=== PATIENT | male | born 1980 | race Caucasian/White ===

== ENCOUNTER 2019-12-18 19:04 | Inpatient (IN) | payer MEDICAID, OTHER ==
[~2019-12-18] VITALS: Ht 190.5 cm; Wt 76.8 kg
[2019-12-18 20:04] LABS: BASOPHILS % (AUTO) 0.9 % (0.0-2.0); EOSINOPHILS % (AUTO) 2.6 % (1.0-6.0); HEMATOCRIT 37.5 % (41-53); HEMOGLOBIN 12.1 g/dL (13.5-17.5); LYMPHOCYTES # (AUTO) 1.8 K/uL (1.0-4.8); LYMPHOCYTES % (AUTO) 19.4 % (22.0-44.0); MEAN CORPUSCULAR HGB CONC 32.2 G/dL (31.0-37.0); MEAN CORPUSCULAR VOLUME 65 fL (80-100); MONOCYTES # (AUTO) 0.7 K/uL (0.1-1.0); MONOCYTES % (AUTO) 7.1 % (2.0-9.0); NEUTROPHILS # (AUTO) 6.4 K/uL (1.8-7.7); PLATELET COUNT (AUTO) 215 K/uL (150-450); RED BLOOD CELL COUNT(AUTO) 5.74 MIL/uL (4.50-5.90); RED CELL DISTRIBUTION WIDTH 15.2 % (11.5-14.5)
[2019-12-18 20:09] LABS: COVID AG,FIA SOURCE NASOPHARYNGEAL
[2019-12-18 20:16] LABS: AMPHET/METH SCREEN,URINE POSITIVE (NEGATIVE); BARBITURATE SCREEN, URINE NEGATIVE (NEGATIVE); BENZODIAZEPINES SCREEN,URINE NEGATIVE (NEGATIVE); CANNABINOID SCREEN,URINE POSITIVE (NEGATIVE); COCAINE SCREEN,URINE NEGATIVE (NEGATIVE); METHADONE SCREEN, URINE NEGATIVE (NEGATIVE); OPIATE SCREEN,URINE NEGATIVE (NEGATIVE)
[2019-12-18 20:17] LABS: PHENCYCLIDINE SCREEN,URINE NEGATIVE (NEGATIVE)
[2019-12-18 20:27] LABS: ANION GAP 7 mmol/L (8-16); CALCIUM, TOTAL 8.3 mg/dL (8.8-10.5); CARBON DIOXIDE 29 mmol/L (22-29); CHLORIDE 104 mmol/L (98-107); CREATININE 0.78 mg/dL (0.60-1.30); GLOMERULAR FILTR. RATE CALC > 60 mL/min (>60); GLUCOSE,RANDOM 99 mg/dL (70-110); POTASSIUM 3.4 mmol/L (3.5-5.1); SODIUM SERUM 140 mmol/L (136-145); UREA NITROGEN, BLOOD 12 mg/dL (7-18)
[2019-12-18] MEDS ORDERED: MAG HYDROX/AL HYDROX/SIMETH ES 30 ML SUSPENSION UDCUP PO PRN (20:30)
[2019-12-18] MEDS ORDERED: OLANZapine 5 MG RAPDIS TABLET PO PRN (20:30)
[2019-12-18] MEDS ORDERED: PROMETHAZINE HCL 25 MG TABLET PO PRN (20:30)
[2019-12-18] MEDS ORDERED: TUBERCULIN, PURIFIED PROTEIN DERIVATIVE 5 TU/0.1 ML SYRINGE ID ONE (20:30)
[2019-12-18] MEDS ORDERED: LOPERAMIDE HCL 2 MG CAPSULE PO PRN (20:30)
[2019-12-18] MEDS ORDERED: GuaiFENesin/D-METHORPHAN [SUGAR-FREE] 200-20MG/10 ML SYRUP UDCUP PO PRN (20:30)
[2019-12-18] MEDS ORDERED: ACETAMINOPHEN 325 MG TABLET PO PRN (20:30)
[2019-12-18] MEDS ORDERED: LORazepam 2 MG TABLET PO PRN (20:30)
[2019-12-18] MEDS ORDERED: HydrOXYzine PAMOATE 50 MG CAPSULE PO PRN (20:30)
[2019-12-18] MEDS ORDERED: MAGNESIUM HYDROXIDE SUSPENSION 30 ML UDCUP PO PRN (20:30)
[2019-12-18 20:31] LABS: ALANINE AMINOTRANSFERASE 16 U/L (12-78); ALBUMIN 3.8 g/dL (3.4-5.0); ALKALINE PHOSPHATASE 66 U/L (46-116); ASPARTATE AMINOTRANSFERASE 14 U/L (15-37); BILIRUBIN,TOTAL 0.6 mg/dL (0.1-1.0); TOTAL PROTEIN, SERUM 6.6 g/dL (6.4-8.2)
[2019-12-18] MEDS ORDERED: OLANZapine 5 MG RAPDIS TABLET PO SCH (21:00)
[2019-12-18] MEDS: THIAMINE 100 MG TABLET PO SCH (21:07)
[2019-12-19 00:43] VITALS: BP 107/69
[2019-12-19] MEDS ORDERED: INFLUENZA VIRUS VACCINE QVS 2020-21 (6MO+)/PF 60 MCG/0.5 ML SYRINGE IM ONE (01:30)
[2019-12-19 07:05] LABS: CHOL/HDL RATIO 2.8 (4.2-7.3); CHOLESTEROL 103 mg/dL (131-200); FREE T4 (FREE THYROXINE) 1.15 ng/dL (0.76-1.46); HDL CHOLESTEROL 37 mg/dL (40-60); LDL CHOL (CALC.) 60 mg/dL (0-130); THYROID STIMULATING HORMONE 1.61 uIU/mL (0.36-3.74); TRIGLYCERIDES 32 mg/dL (15-150)
[2019-12-19 08:00] VITALS: BP 108/81
[2019-12-19] MEDS ORDERED: FLUoxetine HCL 20 MG CAPSULE PO SCH (09:00)
[2019-12-19] MEDS: FOLIC ACID 1 MG TABLET PO SCH (09:29)
[2019-12-19] MEDS: OMEGA-3/DHA/EPA/FISH OIL 1,000 MG CAPSULE PO SCH (09:29)
[2019-12-19] MEDS: NALTREXONE HCL 50 MG TABLET PO SCH (09:29)
[2019-12-19] MEDS: MULTIVITAMINS WITH MINERALS, THERAPEUTIC TABLET PO SCH (09:29)
[2019-12-19] MEDS: THIAMINE 100 MG TABLET PO SCH ×2 (09:30→16:18)
[2019-12-19] MEDS ORDERED: POTASSIUM CHLORIDE 20 MEQ ER TABLET PO ONE (13:30)
[2019-12-19] MEDS ORDERED: LURASIDONE HCL 20 MG TABLET PO PRN (20:15)
[2019-12-20] MEDS ORDERED: LURASIDONE HCL 80 MG TABLET PO SCH (07:30)
[2019-12-20] MEDS: OMEGA-3/DHA/EPA/FISH OIL 1,000 MG CAPSULE PO SCH (08:39)
[2019-12-20] MEDS: THIAMINE 100 MG TABLET PO SCH ×2 (08:39→16:29)
[2019-12-20] MEDS: FOLIC ACID 1 MG TABLET PO SCH (08:39)
[2019-12-20] MEDS: PREGABALIN 50 MG CAPSULE PO SCH ×3 (08:39→16:29)
[2019-12-20] MEDS: MULTIVITAMINS WITH MINERALS, THERAPEUTIC TABLET PO SCH (08:39)
[2019-12-20] MEDS: NALTREXONE HCL 50 MG TABLET PO SCH (08:40)
[2019-12-20 08:50] VITALS: BP 127/72
[2019-12-20] MEDS ORDERED: DULoxetine HCL 30 MG CAPSULE PO SCH (09:00)
[2019-12-20] MEDS ORDERED: BuPROPion HCL XL 150 MG ER TABLET PO SCH (09:00)
[2019-12-20 16:00] VITALS: BP 115/66
[2019-12-21] MEDS: LURASIDONE HCL 60 MG TABLET PO SCH (07:02)
[2019-12-21 08:00] VITALS: BP 117/71
[2019-12-21] MEDS: MULTIVITAMINS WITH MINERALS, THERAPEUTIC TABLET PO SCH (08:29)
[2019-12-21] MEDS: NALTREXONE HCL 50 MG TABLET PO SCH (08:29)
[2019-12-21] MEDS: PREGABALIN 75 MG CAPSULE PO SCH ×3 (08:29→16:16)
[2019-12-21] MEDS: BuPROPion HCL XL 150 MG ER TABLET PO SCH (08:30)
[2019-12-21] MEDS: FOLIC ACID 1 MG TABLET PO SCH (08:30)
[2019-12-21] MEDS: OMEGA-3/DHA/EPA/FISH OIL 1,000 MG CAPSULE PO SCH (08:30)
[2019-12-21] MEDS: THIAMINE 100 MG TABLET PO SCH ×2 (08:30→16:17)
[2019-12-21] MEDS ORDERED: DULoxetine HCL 20 MG CAPSULE PO SCH (09:00)
[2019-12-21 16:13] VITALS: BP 106/67
[2019-12-22] MEDS: LURASIDONE HCL 60 MG TABLET PO SCH (07:00)
[2019-12-22] MEDS: NALTREXONE HCL 50 MG TABLET PO SCH (08:34)
[2019-12-22] MEDS: PREGABALIN 75 MG CAPSULE PO SCH ×3 (08:34→16:22)
[2019-12-22] MEDS: MULTIVITAMINS WITH MINERALS, THERAPEUTIC TABLET PO SCH (08:34)
[2019-12-22] MEDS: BuPROPion HCL XL 150 MG ER TABLET PO SCH (08:34)
[2019-12-22] MEDS: FOLIC ACID 1 MG TABLET PO SCH (08:34)
[2019-12-22] MEDS: OMEGA-3/DHA/EPA/FISH OIL 1,000 MG CAPSULE PO SCH (08:34)
[2019-12-22] MEDS: DULoxetine HCL 60 MG CAPSULE PO SCH (08:38)
[2019-12-22] MEDS: THIAMINE 100 MG TABLET PO SCH ×2 (08:40→16:22)
[2019-12-22 10:16] VITALS: BP 110/64
[2019-12-22 17:11] VITALS: BP 103/63
[2019-12-23] MEDS: LURASIDONE HCL 60 MG TABLET PO SCH (07:01)
[2019-12-23] MEDS: FOLIC ACID 1 MG TABLET PO SCH (08:43)
[2019-12-23] MEDS: PREGABALIN 50 MG CAPSULE PO SCH ×3 (08:43→16:32)
[2019-12-23] MEDS: NALTREXONE HCL 50 MG TABLET PO SCH (08:43)
[2019-12-23] MEDS: DULoxetine HCL 60 MG CAPSULE PO SCH (08:43)
[2019-12-23] MEDS: OMEGA-3/DHA/EPA/FISH OIL 1,000 MG CAPSULE PO SCH (08:43)
[2019-12-23] MEDS: THIAMINE 100 MG TABLET PO SCH ×2 (08:44→16:33)
[2019-12-23] MEDS: MULTIVITAMINS WITH MINERALS, THERAPEUTIC TABLET PO SCH (08:44)
[2019-12-23] MEDS: BuPROPion HCL XL 150 MG ER TABLET PO SCH (08:44)
[2019-12-23 16:00] VITALS: BP 113/70
[2019-12-24] MEDS: LURASIDONE HCL 60 MG TABLET PO SCH (07:04)
[2019-12-24 08:24] VITALS: BP 103/62
[2019-12-24] MEDS: OMEGA-3/DHA/EPA/FISH OIL 1,000 MG CAPSULE PO SCH (08:50)
[2019-12-24] MEDS: THIAMINE 100 MG TABLET PO SCH ×2 (08:50→16:44)
[2019-12-24] MEDS: BuPROPion HCL XL 150 MG ER TABLET PO SCH (08:50)
[2019-12-24] MEDS: NALTREXONE HCL 50 MG TABLET PO SCH (08:50)
[2019-12-24] MEDS: MULTIVITAMINS WITH MINERALS, THERAPEUTIC TABLET PO SCH (08:50)
[2019-12-24] MEDS: PREGABALIN 50 MG CAPSULE PO SCH ×3 (08:50→16:44)
[2019-12-24] MEDS: FOLIC ACID 1 MG TABLET PO SCH (08:50)
[2019-12-24] MEDS: DULoxetine HCL 60 MG CAPSULE PO SCH (08:50)
[2019-12-24 16:53] VITALS: BP 111/70
[2019-12-25] MEDS: LURASIDONE HCL 60 MG TABLET PO SCH (07:02)
[2019-12-25 08:00] VITALS: BP 115/67
[2019-12-25] MEDS: OMEGA-3/DHA/EPA/FISH OIL 1,000 MG CAPSULE PO SCH (08:49)
[2019-12-25] MEDS: MULTIVITAMINS WITH MINERALS, THERAPEUTIC TABLET PO SCH (08:49)
[2019-12-25] MEDS: BuPROPion HCL XL 150 MG ER TABLET PO SCH (08:49)
[2019-12-25] MEDS: DULoxetine HCL 60 MG CAPSULE PO SCH (08:49)
[2019-12-25] MEDS: THIAMINE 100 MG TABLET PO SCH ×2 (08:50→15:58)
[2019-12-25] MEDS: PREGABALIN 50 MG CAPSULE PO SCH ×3 (08:50→15:58)
[2019-12-25] MEDS: FOLIC ACID 1 MG TABLET PO SCH (08:50)
[2019-12-25] MEDS: NALTREXONE HCL 50 MG TABLET PO SCH (08:51)
[2019-12-25 16:15] VITALS: BP 115/69
[2019-12-25] MEDS: ZOLPIDEM TARTRATE 10 MG TABLET PO PRN (22:49)
[2019-12-26] MEDS: LURASIDONE HCL 80 MG TABLET PO SCH (06:53)
[2019-12-26] MEDS: MULTIVITAMINS WITH MINERALS, THERAPEUTIC TABLET PO SCH (08:03)
[2019-12-26] MEDS: PREGABALIN 50 MG CAPSULE PO SCH ×3 (08:03→16:01)
[2019-12-26] MEDS: BuPROPion HCL XL 150 MG ER TABLET PO SCH (08:04)
[2019-12-26] MEDS: FOLIC ACID 1 MG TABLET PO SCH (08:04)
[2019-12-26] MEDS: DULoxetine HCL 60 MG CAPSULE PO SCH (08:04)
[2019-12-26] MEDS: THIAMINE 100 MG TABLET PO SCH ×2 (08:04→16:02)
[2019-12-26] MEDS: OMEGA-3/DHA/EPA/FISH OIL 1,000 MG CAPSULE PO SCH (08:04)
[2019-12-26] MEDS: NALTREXONE HCL 50 MG TABLET PO SCH (08:05)
[2019-12-26 08:45] VITALS: BP 108/66
[2019-12-26 16:15] VITALS: BP 108/55
[2019-12-26] MEDS ORDERED: NALT50TA PO (19:13)
[2019-12-26] MEDS ORDERED: OMEG-135 PO (19:13)
[2019-12-26] MEDS ORDERED: BUPR-47 PO (19:13)
[2019-12-26] MEDS ORDERED: PREG50 PO (19:13)
[2019-12-26] MEDS ORDERED: LURA80TA2 PO (19:13)
[2019-12-26] MEDS ORDERED: FOLI-130 PO (19:13)
[2019-12-26] MEDS: ZOLPIDEM TARTRATE 10 MG TABLET PO PRN (20:27)
[2019-12-27] MEDS: LURASIDONE HCL 80 MG TABLET PO SCH (06:50)
[2019-12-27] MEDS: NALTREXONE HCL 50 MG TABLET PO SCH (09:04)
[2019-12-27] MEDS: BuPROPion HCL XL 150 MG ER TABLET PO SCH (09:04)
[2019-12-27] MEDS: MULTIVITAMINS WITH MINERALS, THERAPEUTIC TABLET PO SCH (09:04)
[2019-12-27] MEDS: PREGABALIN 50 MG CAPSULE PO SCH (09:04)
[2019-12-27] MEDS: DULoxetine HCL 60 MG CAPSULE PO SCH (09:05)
[2019-12-27] MEDS: THIAMINE 100 MG TABLET PO SCH (09:05)
[2019-12-27] MEDS: OMEGA-3/DHA/EPA/FISH OIL 1,000 MG CAPSULE PO SCH (09:05)
[2019-12-27] MEDS: FOLIC ACID 1 MG TABLET PO SCH (09:05)
[2019-12-27 09:18] VITALS: BP 114/72
== END 2019-12-27 09:15 | disposition home or self-care (01) | DRG 750 ==
LOC: EMS 19:05 → 3EC 20:23
PROVIDERS: ADMIT Psychiatry & Neurology Psychiatry; ATTEND Psychiatry & Neurology Psychiatry
DX: F25.9 Schizoaffective disorder, unspecified (principal); K21.9 Gastro-esophageal reflux disease without esophagitis; R45.851 Suicidal ideations; F32.9 Major depressive disorder, single episode, unspecified; Z55.9 Problems related to education and literacy, unspecified; Z59.9 Problem related to housing and economic circumstances, unspecified; Z65.3 Problems related to other legal circumstances; Z59.0 Homelessness
CPT/HCPCS: 83036; 84439; 84443; 86592; 87426; 90686; G0480

== ENCOUNTER 2020-01-24 09:57 | Inpatient (IN) | payer MEDICAID ==
[~2020-01-24] VITALS: Ht 190.5 cm; Wt 75.0 kg
[~2020-01-24 09:57] MED LIST: BUPR-47 PO; FOLI-130 PO; LURA80TA2 PO; NALT50TA PO; OMEG-135 PO; PREG50 PO
[2020-01-24] MEDS ORDERED: HALOPERIDOL 5 MG TABLET PO PRN (12:45)
[2020-01-24 13:00] VITALS: BP 102/64
[2020-01-24 13:35] VITALS: BP 102/64
[2020-01-24 16:00] VITALS: BP 102/62
[2020-01-24] MEDS: NALTREXONE HCL 50 MG TABLET PO SCH (16:38)
[2020-01-24] MEDS: BuPROPion HCL XL 150 MG ER TABLET PO SCH (16:38)
[2020-01-24] MEDS: LORazepam 2 MG TABLET PO PRN (21:51)
[2020-01-25 06:27] VITALS: BP 110/69
[2020-01-25] MEDS: LURASIDONE HCL 80 MG TABLET PO SCH (07:01)
[2020-01-25 08:03] VITALS: BP 101/60
[2020-01-25 08:08] LABS: BASOPHILS % (AUTO) 0.5 % (0.0-2.0); EOSINOPHILS % (AUTO) 3.8 % (1.0-6.0); HEMATOCRIT 39.4 % (41-53); HEMOGLOBIN 12.9 g/dL (13.5-17.5); LYMPHOCYTES # (AUTO) 1.2 K/uL (1.0-4.8); LYMPHOCYTES % (AUTO) 18.3 % (22.0-44.0); MEAN CORPUSCULAR HEMOGLOBIN 21.1 pg (26.0-34.0); MEAN CORPUSCULAR HGB CONC 32.7 G/dL (31.0-37.0); MEAN CORPUSCULAR VOLUME 65 fL (80-100); MONOCYTES # (AUTO) 0.5 K/uL (0.1-1.0); MONOCYTES % (AUTO) 7.5 % (2.0-9.0); NEUTROPHILS # (AUTO) 4.6 K/uL (1.8-7.7); NEUTROPHILS % (AUTO) 69.9 % (40.0-70.0); PLATELET COUNT (AUTO) 169 K/uL (150-450); RED BLOOD CELL COUNT(AUTO) 6.09 MIL/uL (4.50-5.90); RED CELL DISTRIBUTION WIDTH 15.6 % (11.5-14.5)
[2020-01-25 08:23] LABS: ALANINE AMINOTRANSFERASE 23 U/L (12-78); ALBUMIN 3.7 g/dL (3.4-5.0); ALKALINE PHOSPHATASE 62 U/L (46-116); ANION GAP 7 mmol/L (8-16); ASPARTATE AMINOTRANSFERASE 13 U/L (15-37); BILIRUBIN,TOTAL 0.8 mg/dL (0.1-1.0); CALCIUM, TOTAL 8.4 mg/dL (8.8-10.5); CARBON DIOXIDE 28 mmol/L (22-29); CHLORIDE 102 mmol/L (98-107); CHOL/HDL RATIO 3.3 (4.2-7.3); CHOLESTEROL 106 mg/dL (131-200); CREATININE 0.68 mg/dL (0.60-1.30); GLOMERULAR FILTR. RATE CALC > 60 mL/min (>60); GLUCOSE,RANDOM 88 mg/dL (70-110); HDL CHOLESTEROL 32 mg/dL (40-60); LDL CHOL (CALC.) 65 mg/dL (0-130); POTASSIUM 4.1 mmol/L (3.5-5.1); SODIUM SERUM 137 mmol/L (136-145); TOTAL PROTEIN, SERUM 6.7 g/dL (6.4-8.2); TRIGLYCERIDES 47 mg/dL (15-150); UREA NITROGEN, BLOOD 14 mg/dL (7-18)
[2020-01-25] MEDS ORDERED: IBUPROFEN 600 MG TABLET PO PRN (08:45)
[2020-01-25] MEDS ORDERED: MAGNESIUM HYDROXIDE SUSPENSION 30 ML UDCUP PO PRN (08:45)
[2020-01-25] MEDS ORDERED: OMEPRAZOLE 20 MG CAPSULE PO PRN (08:45)
[2020-01-25] MEDS ORDERED: MAG HYDROX/AL HYDROX/SIMETH ES 30 ML SUSPENSION UDCUP PO PRN (08:45)
[2020-01-25] MEDS ORDERED: BENZOCAINE/MENTHOL LOZENGE PO PRN (08:45)
[2020-01-25] MEDS ORDERED: CloNIDine HCL 0.1 MG TABLET PO PRN (08:45)
[2020-01-25] MEDS ORDERED: PETROLATUM,WHITE 28 GM JELLY TP PRN (08:45)
[2020-01-25] MEDS ORDERED: BACITRACIN 28 GM OINTMENT TP PRN (08:45)
[2020-01-25] MEDS ORDERED: ALBUTEROL SULFATE HFA 90 MCG/PUFF 8 GM INHALER IH PRN (08:45)
[2020-01-25] MEDS ORDERED: DOCUSATE SODIUM 100 MG CAPSULE PO PRN (08:45)
[2020-01-25] MEDS ORDERED: ONDANSETRON HCL 4 MG TABLET PO PRN (08:45)
[2020-01-25] MEDS ORDERED: LOPERAMIDE HCL 2 MG CAPSULE PO PRN (08:45)
[2020-01-25] MEDS ORDERED: ACETAMINOPHEN 325 MG TABLET PO PRN (08:45)
[2020-01-25] MEDS: BuPROPion HCL XL 150 MG ER TABLET PO SCH (08:55)
[2020-01-25] MEDS: NALTREXONE HCL 50 MG TABLET PO SCH (08:55)
[2020-01-25] MEDS: MULTIVITAMINS WITH MINERALS, THERAPEUTIC TABLET PO SCH (09:00)
[2020-01-25] MEDS: FOLIC ACID 1 MG TABLET PO SCH (09:00)
[2020-01-25] MEDS: OMEGA-3/DHA/EPA/FISH OIL 1,000 MG CAPSULE PO SCH (09:00)
[2020-01-25 16:12] VITALS: BP 102/64
[2020-01-26] MEDS: LURASIDONE HCL 80 MG TABLET PO SCH (06:23)
[2020-01-26 06:41] VITALS: BP 101/60
[2020-01-26] MEDS: MULTIVITAMINS WITH MINERALS, THERAPEUTIC TABLET PO SCH (08:23)
[2020-01-26] MEDS: BuPROPion HCL XL 150 MG ER TABLET PO SCH (08:23)
[2020-01-26] MEDS: FOLIC ACID 1 MG TABLET PO SCH (08:23)
[2020-01-26] MEDS: OMEGA-3/DHA/EPA/FISH OIL 1,000 MG CAPSULE PO SCH (08:23)
[2020-01-26] MEDS: NALTREXONE HCL 50 MG TABLET PO SCH (08:23)
[2020-01-26 08:37] VITALS: BP 127/78
[2020-01-26 16:26] VITALS: BP 110/63
[2020-01-27 00:59] VITALS: BP 104/58
[2020-01-27] MEDS: LURASIDONE HCL 80 MG TABLET PO SCH (06:14)
[2020-01-27] MEDS: MULTIVITAMINS WITH MINERALS, THERAPEUTIC TABLET PO SCH (08:11)
[2020-01-27] MEDS: BuPROPion HCL XL 150 MG ER TABLET PO SCH (08:11)
[2020-01-27] MEDS: OMEGA-3/DHA/EPA/FISH OIL 1,000 MG CAPSULE PO SCH (08:11)
[2020-01-27] MEDS: FOLIC ACID 1 MG TABLET PO SCH (08:12)
[2020-01-27] MEDS: NALTREXONE HCL 50 MG TABLET PO SCH (08:12)
[2020-01-27 08:58] VITALS: BP 95/68
[2020-01-27 16:09] VITALS: BP 107/65
[2020-01-27] MEDS: ZOLPIDEM TARTRATE 10 MG TABLET PO PRN (20:23)
[2020-01-28 03:22] VITALS: BP 112/78
[2020-01-28] MEDS: LURASIDONE HCL 80 MG TABLET PO SCH (06:12)
[2020-01-28 08:35] VITALS: BP 105/64
[2020-01-28] MEDS: OMEGA-3/DHA/EPA/FISH OIL 1,000 MG CAPSULE PO SCH (08:36)
[2020-01-28] MEDS: BuPROPion HCL XL 150 MG ER TABLET PO SCH (08:36)
[2020-01-28] MEDS: MULTIVITAMINS WITH MINERALS, THERAPEUTIC TABLET PO SCH (08:37)
[2020-01-28] MEDS: FOLIC ACID 1 MG TABLET PO SCH (08:37)
[2020-01-28] MEDS: NALTREXONE HCL 50 MG TABLET PO SCH (08:37)
[2020-01-28 16:57] VITALS: BP 100/65
[2020-01-28] MEDS: LORazepam 2 MG TABLET PO PRN (17:38)
[2020-01-28] MEDS: ZOLPIDEM TARTRATE 10 MG TABLET PO PRN (20:50)
[2020-01-29 03:50] VITALS: BP 111/66
[2020-01-29] MEDS: LURASIDONE HCL 80 MG TABLET PO SCH (06:14)
[2020-01-29 08:06] VITALS: BP 108/67
[2020-01-29] MEDS: FOLIC ACID 1 MG TABLET PO SCH (08:49)
[2020-01-29] MEDS: BuPROPion HCL XL 150 MG ER TABLET PO SCH (08:49)
[2020-01-29] MEDS: MULTIVITAMINS WITH MINERALS, THERAPEUTIC TABLET PO SCH (08:49)
[2020-01-29] MEDS: NALTREXONE HCL 50 MG TABLET PO SCH (08:49)
[2020-01-29] MEDS: OMEGA-3/DHA/EPA/FISH OIL 1,000 MG CAPSULE PO SCH (08:49)
[2020-01-29 16:33] VITALS: BP 102/67
[2020-01-29] MEDS: LORazepam 2 MG TABLET PO PRN (16:53)
[2020-01-29] MEDS: ZOLPIDEM TARTRATE 10 MG TABLET PO PRN (20:39)
[2020-01-30] MEDS: LURASIDONE HCL 80 MG TABLET PO SCH (06:20)
[2020-01-30 06:23] VITALS: BP 99/68
[2020-01-30 08:08] VITALS: BP 108/64
[2020-01-30] MEDS: MULTIVITAMINS WITH MINERALS, THERAPEUTIC TABLET PO SCH (09:17)
[2020-01-30] MEDS: FOLIC ACID 1 MG TABLET PO SCH (09:17)
[2020-01-30] MEDS: BuPROPion HCL XL 150 MG ER TABLET PO SCH (09:19)
[2020-01-30] MEDS: OMEGA-3/DHA/EPA/FISH OIL 1,000 MG CAPSULE PO SCH (09:24)
[2020-01-30] MEDS: NALTREXONE HCL 50 MG TABLET PO SCH (09:25)
[2020-01-30 16:11] VITALS: BP 102/65
[2020-01-30] MEDS: LORazepam 2 MG TABLET PO PRN (17:53)
[2020-01-30] MEDS: ZOLPIDEM TARTRATE 10 MG TABLET PO PRN (20:20)
[2020-01-31 01:02] VITALS: BP 95/63
[2020-01-31] MEDS: LURASIDONE HCL 80 MG TABLET PO SCH (06:36)
[2020-01-31 08:05] LABS: APPEARANCE,URINE CLOUDY (CLEAR); BILIRUBIN,URINE NEGATIVE (NEGATIVE); GLUCOSE, URINE (UA) NEGATIVE (NEGATIVE); KETONES,URINE NEGATIVE (NEGATIVE); LEUKOCYTE ESTERASE ,URINE NEGATIVE (NEGATIVE); NITRATE,URINE NEGATIVE (NEGATIVE); OCCULT BLOOD,URINE NEGATIVE (NEGATIVE); PH,URINE 5.5 (5.0-8.0); PROTEIN,URINE NEGATIVE (NEGATIVE); UROBILINOGEN,URINE 0.2 mg/dL (<=1.0)
[2020-01-31 08:16] LABS: AMPHET/METH SCREEN,URINE NEGATIVE (NEGATIVE); BARBITURATE SCREEN, URINE NEGATIVE (NEGATIVE); BENZODIAZEPINES SCREEN,URINE NEGATIVE (NEGATIVE); CANNABINOID SCREEN,URINE NEGATIVE (NEGATIVE); COCAINE SCREEN,URINE NEGATIVE (NEGATIVE); METHADONE SCREEN, URINE NEGATIVE (NEGATIVE); OPIATE SCREEN,URINE NEGATIVE (NEGATIVE)
[2020-01-31 08:17] LABS: PHENCYCLIDINE SCREEN,URINE NEGATIVE (NEGATIVE)
[2020-01-31 08:40] VITALS: BP 134/78
[2020-01-31] MEDS: MULTIVITAMINS WITH MINERALS, THERAPEUTIC TABLET PO SCH (10:24)
[2020-01-31] MEDS: FOLIC ACID 1 MG TABLET PO SCH (10:24)
[2020-01-31] MEDS: BuPROPion HCL XL 150 MG ER TABLET PO SCH (10:25)
[2020-01-31] MEDS: NALTREXONE HCL 50 MG TABLET PO SCH (10:25)
[2020-01-31] MEDS: OMEGA-3/DHA/EPA/FISH OIL 1,000 MG CAPSULE PO SCH (10:25)
[2020-01-31 16:44] VITALS: BP 104/67
[2020-01-31] MEDS: LORazepam 2 MG TABLET PO PRN (16:53)
[2020-01-31] MEDS: ZOLPIDEM TARTRATE 10 MG TABLET PO PRN (20:22)
[2020-02-01 00:41] VITALS: BP 104/60
[2020-02-01] MEDS: LURASIDONE HCL 80 MG TABLET PO SCH (06:43)
[2020-02-01] MEDS: NALTREXONE HCL 50 MG TABLET PO SCH (09:14)
[2020-02-01] MEDS: BuPROPion HCL XL 150 MG ER TABLET PO SCH (09:14)
[2020-02-01] MEDS: FOLIC ACID 1 MG TABLET PO SCH (09:14)
[2020-02-01] MEDS: OMEGA-3/DHA/EPA/FISH OIL 1,000 MG CAPSULE PO SCH (09:14)
[2020-02-01] MEDS: MULTIVITAMINS WITH MINERALS, THERAPEUTIC TABLET PO SCH (09:15)
[2020-02-01 13:45] VITALS: BP 110/66
[2020-02-01] MEDS: LORazepam 2 MG TABLET PO PRN ×2 (13:46→20:12)
[2020-02-01 16:11] VITALS: BP 108/68
[2020-02-01] MEDS: ZOLPIDEM TARTRATE 10 MG TABLET PO PRN (20:12)
== END 2020-02-01 23:27 | disposition home or self-care (01) | DRG 750 ==
LOC: B3A 12:19
PROVIDERS: ADMIT Psychiatry & Neurology Psychiatry; ATTEND Psychiatry & Neurology Psychiatry
DX: F20.0 Paranoid schizophrenia (principal); R45.851 Suicidal ideations; Z59.0 Homelessness; F19.10 Other psychoactive substance abuse, uncomplicated; G47.00 Insomnia, unspecified; K59.00 Constipation, unspecified; F41.9 Anxiety disorder, unspecified; F32.9 Major depressive disorder, single episode, unspecified; F10.10 Alcohol abuse, uncomplicated; Y90.9 Presence of alcohol in blood, level not specified; Z72.0 Tobacco use
CPT/HCPCS: 80307; 83036; G0480